=== PATIENT | male | born 1965 | race Caucasian/White ===

== ENCOUNTER 2023-12-22 14:40 | Outpatient (CLI) | payer MEDICAID, SELFPAY ==
--- NOTE | 2023-12-22 10:30 | DI.RAD_ITS ---
Exam(s) XR KNEE LT 3V AP,LAT,DAMARI EXAM: XR KNEE LT 3V AP,LAT,DAMARI CLINICAL HISTORY: BILAT KNEE PAIN. TECHNIQUE: 2D digital imaging was performed. Three views. COMPARISON: No exams were available for comparison FINDINGS: BONES: No acute fracture is present. No bony destructive lesion is seen. JOINTS: Moderate narrowing of the medial femoral tibial joint space with mild periarticular spurring. Mild varus angulation. Patellofemoral joint space is maintained and shows mild periarticular spurr ing. No joint effusion is seen. SOFT TISSUE: Vascular calcifications. IMPRESSION: Stable moderate degenerative changes of the medial femoral tibial joint. DATA REPOSITORY: RADIATION DOSE DELIVERED:
--- NOTE | 2023-12-22 10:30 | DI.RAD_ITS ---
Exam(s) XR KNEE RT 3V AP,LAT,DAMARI EXAM: XR KNEE RT 3V AP,LAT,DAMARI CLINICAL HISTORY: BILAT KNEE PAIN. TECHNIQUE: 2D digital imaging was performed. Three views. COMPARISON: CR XR KNEE COMPLETE MIN 4V BILAT-M2 from 04/16/2023 CR XR KNEE LT 3V AP,LAT,DAMARI from 12/22/2023 FINDINGS: BONES: No acute fracture is present. No bony destructive lesion is seen. JOINTS: There is moderate to severe narrowing of the medial femoral tibial joint space with periartic ular spurring and mild varus angulation. Compensatory widening of lateral femoral tibial joint space . Patellofemoral joint space is maintained. Mild periarticular spurring. No joint effusion is seen . SOFT TISSUE: Vascular calcifications. IMPRESSION: Moderate to severe degenerative changes medial femoral tibial joint. DATA REPOSITORY: RADIATION DOSE DELIVERED:
== END 2023-12-22 14:41 | disposition home or self-care (01) ==
LOC: DIORS 14:40
PROVIDERS: PCP Registered Nurse; Visit Provider Student in an Organized Health Care Education/Training Program
DX: M17.12 Unilateral primary osteoarthritis, left knee (principal); M17.11 Unilateral primary osteoarthritis, right knee
CPT/HCPCS: 73562

== ENCOUNTER 2024-04-04 02:24 | Outpatient (CLI) | payer OTHER, SELFPAY ==
[2024-04-04 14:33] LABS: HCT 38.2 % (40.0-50.0); HGB 13.2 g/dL (13.5-17.5); MCH 32.3 pg (27.0-33.0); MCHC 34.6 % (32.0-36.0); MCV 93 fL (80-95); Platelet Count 230 10^3/uL (130-400); RBC 4.09 10^6/uL (4.36-5.78); RDW 12.8 % (11.8-14.1); RDW-SD 43.9 fL; WBC 7.16 10^3/uL (4.4-10.8)
[2024-04-04 14:57] LABS: Anion Gap 7.9 mmol/L (3-11); BUN 19 mg/dL (7-18); CO2 27.1 mmol/L (21.0-32.0); CREATININE 1.3 mg/dL (0.70-1.30); Chloride 111 mmol/L (98-107); Estimated GFR 64.07 (mL/min/1.73m2); Glucose 95 mg/dL (74-106); Potassium 4.3 mmol/L (3.5-5.1); Sodium 146 mmol/L (136-145)
== END 2024-04-04 02:25 | disposition home or self-care (01) ==
LOC: LBO 02:24
PROVIDERS: PCP Registered Nurse; Visit Provider Student in an Organized Health Care Education/Training Program
DX: M17.12 Unilateral primary osteoarthritis, left knee (principal); M17.11 Unilateral primary osteoarthritis, right knee; Z01.818 Encounter for other preprocedural examination
CPT/HCPCS: 36415; 80048; 85027

== ENCOUNTER 2024-04-04 15:24 | Outpatient (CLI) | payer OTHER, SELFPAY ==
--- NOTE | 2024-04-04 15:15 | DI.RAD_ITS ---
Exam(s) XR KNEE LT 1V XR KNEE RT 1V XR STANDING ALIGNMENT EXAM: XR STANDING ALIGNMENT and XR knee 1 V bilaterally CLINICAL HISTORY: PRE OP BILAT TKAs. TECHNIQUE: 2D digital imaging was performed. Six images were obtained. COMPARISON: CR XR KNEE LT 3V AP,LAT,DAMARI from 12/22/2023 CR XR KNEE RT 3V AP,LAT,DAMARI from 12/22/2023 FINDINGS: BONES: The hips are well maintained. There are degenerative changes seen in the right knee character ized by joint space narrowing and osteophytes. The findings are most marked in the medial femoral ti bial joint. In the left knee, degenerative changes are seen in the medial femoral tibial patellofemo ral joints characterized by joint space narrowing and osteophytes. There is a small right joint effu josselin. The ankles are well maintained.There is no significant leg length discrepancy. SOFT TISSUE: Vascular calcifications are present. IMPRESSION: Moderately severe osteoarthritis of the knees bilaterally. DATA REPOSITORY: RADIATION DOSE DELIVERED:
== END 2024-04-04 15:25 | disposition home or self-care (01) ==
LOC: DIORS 15:24
PROVIDERS: PCP Registered Nurse; Referring Provider Registered Nurse; Visit Provider Physician Assistant
DX: M17.11 Unilateral primary osteoarthritis, right knee (principal); M17.12 Unilateral primary osteoarthritis, left knee
CPT/HCPCS: 73560; 77073

== ENCOUNTER 2024-04-12 17:33 | Observation (INO) | payer OTHER, SELFPAY ==
[2024-04-12] VITALS (10 sets, daily range): BP systolic 120–140; BP diastolic 77–93; PULSE 58–69; RESP 13–18; TEMP 36.1–36.5; O2SAT 98–100; BMI 27.9
[2024-04-12] MEDS: Acetaminophen 500 MG TAB 1000 MG PO ×2 (10:41→19:28)
[2024-04-12] MEDS: Gabapentin 300 MG CAP PO ×2 (10:41→19:28)
[2024-04-12] MEDS: Celecoxib 200 MG CAP 400 MG PO (10:41)
[2024-04-12] MEDS: Lactated Ringers 1,000 ML 80 ML IV ×2 (10:59→17:55)
--- NOTE | 2024-04-12 11:51 | W.ANESPRE ---
General Info Date of Service Date Performed: 04/12/24 Height: 5 ft 10 in Weight: 88.4 kg Body Mass Index (BMI): 27.9 Surgical Procedure: Operation Date: 04/12/24 12:35 Proposed Procedure Side Surgeon p Knee Total Arthroplasty Bilateral Bilateral Korey Ricketts MD Meds Allergies and Home Medications Allergies Allergy/AdvReac Type Severity Reaction Status Date / Time No Known Allergies Allergy Verified 04/12/24 10:26 Home Medication ?Medication ?Instructions ?Recorded Unknown [No Known Home Meds] 03/22/24 acetaminophen 500 mg tablet 1,000 mg (2 x 500 mg) PO Q8H PRN 04/12/24 pain #90 tabs aspirin 81 mg tablet,delayed 81 mg PO BID 30 days #60 tabs 04/12/24 release celecoxib 200 mg capsule (Celebrex) 200 mg PO BID PRN #60 caps 04/12/24 dexamethasone 4 mg tablet 4 mg PO DAILY #2 tabs 04/12/24 docusate sodium 100 mg capsule 100 mg PO BID #30 caps 04/12/24 (Colace) gabapentin 300 mg capsule 300 mg PO QHS #14 caps 04/12/24 oxycodone 5 mg tablet 5 mg PO Q4H PRN #18 tabs 04/12/24 pantoprazole 40 mg tablet,delayed 40 mg PO DAILY 14 days #14 tabs 04/12/24 release Current Visit Medications: Current Medications Generic Name Dose Route Start Last Admin Trade Name Freq PRN Reason Stop Dose Admin Acetaminophen 1,000 mg 04/12/24 06:00 04/12/24 10:41 Acetaminophen 500 Mg Tab PO 04/12/24 23:59 1,000 mg PREOP NAMRATA Administration Acetaminophen 1,000 mg 04/12/24 14:00 Acetaminophen 500 Mg Tab PO 05/12/24 13:59 TID NAMRATA Aspirin 81 mg 04/12/24 20:00 Aspirin E.C. 81 Mg Tabec PO 05/12/24 19:59 BID NAMRATA Celecoxib 400 mg 04/12/24 06:00 04/12/24 10:41 Celecoxib 200 Mg Cap PO 04/12/24 23:59 400 mg PREOP NAMRATA Administration Celecoxib 200 mg 04/12/24 20:00 Celecoxib 200 Mg Cap PO 05/12/24 19:59 BID NAMRATA Dexamethasone 4 mg 04/13/24 08:30 Dexamethasone 4 Mg Tab PO 04/14/24 08:31 DAILY NAMRATA Ephedrine Sulfate 0 mg 04/12/24 11:49 Ephedrine 25 Mg/5 Ml Syringe IVP 05/12/24 11:48 DIRECTED PRN Fentanyl 0 mcg 04/12/24 11:49 Fentanyl 100 Mcg/2 Ml Vial IVP 05/12/24 11:48 DIRECTED PRN Gabapentin 300 mg 04/12/24 06:00 04/12/24 10:41 Gabapentin 300 Mg Cap PO 04/12/24 23:59 300 mg PREOP NAMRATA Administration Gabapentin 300 mg 04/12/24 20:00 Gabapentin 300 Mg Cap PO 05/12/24 19:59 HS NAMRATA Hydromorphone HCl 0.5 mg 04/12/24 10:24 Hydromorphone 2 Mg/Ml Syr IVP 05/12/24 10:23 Q2H PRN PRN Hydromorphone HCl 0 mg 04/12/24 11:49 Hydromorphone 2 Mg/Ml Syr IVP 05/12/24 11:48 DIRECTED PRN Ringer's Solution 1,000 mls @ 80 mls/hr 04/12/24 06:00 04/12/24 10:59 IV 04/12/24 23:59 80 mls/hr INFUSION NAMRATA Administration Cefazolin Sodium/Dextrose 2 gm in 50 mls @ 100 mls/hr 04/12/24 06:00 Ancef Duplex IVPB 04/12/24 23:59 PREOP NAMRATA Tranexamic Acid/Sodium Chloride 1,000 mg in 100 mls @ 600 mls/hr 04/12/24 06:00 IVPB 04/12/24 23:59 PREOP NAMRATA Tranexamic Acid/Sodium Chloride 1,000 mg in 100 mls @ 600 mls/hr 04/12/24 06:00 IVPB 04/12/24 23:59 DIRECTED NAMRATA Cefazolin Sodium/Dextrose 1 gm in 50 mls @ 100 mls/hr 04/12/24 12:00 Ancef Duplex IVPB 04/13/24 04:29 Q8H NAMRATA IV Miscellaneous Supplies 1 each 04/12/24 06:00 Iv Access IV 04/12/24 23:59 DIRECTED NAMRATA Naloxone HCl 0 mg 04/12/24 11:49 Naloxone 0.4 Mg/Ml Vial IVP 05/12/24 11:48 PRN PRN Oxycodone HCl 0 mg 04/12/24 10:24 Oxycodone 5 Mg Tab PO 05/12/24 10:23 Q3H PRN PRN Pain Sodium Chloride 0 ml 04/12/24 06:00 Normal Saline Flush 10 Ml Syr IV 04/12/24 23:59 PRN PRN Sodium Chloride 0 ml 04/12/24 06:00 Normal Saline 10 Ml Vial IJ 04/12/24 23:59 DIRECTED PRN Sterile Water 0 ml 04/12/24 06:00 Water,Injection,Sterile 10 Ml Vial IJ 04/12/24 23:59 DIRECTED PRN PFSH Active Problems Active Problems: Problem Status Onset Code Arthritis of left knee Chronic M17.12 Arthritis of right knee Chronic M17.11 Pain, foot Acute M79.673 Right shoulder pain Acute M25.511 Hypertension Chronic I10 Onychomycosis Acute B35.1 Medical History Medical History Past history of chewing tobacco use continues on occasion quit 10/2022 Medial meniscus tear Bronchitis with bronchospasm Cellulitis of great toe, left Surgical History Surgical History Hx of LASIK bilateral - right eye repaired in Spring 2023 Status post arthroscopy of right shoulder S/P arthroscopy of knee (08/26/22) left Status post surgical removal of nail matrix of toe Tobacco Smoking/Tobacco Use Status: Never Alcohol Alcohol Intake: current Alcohol intake frequency: 0-2 drinks per day Alcohol type: beer Substance Use Substance use: Never Substance use type: does not use Details: Last chewed tobacco 04/11/24 Vital Signs and Lab Results Vital Signs Most Recent Vital Signs in EMR: Most Recent Vital Signs Temp Pulse Resp BP Pulse Ox 36.4 C L 59 L 16 125/82 100 04/12/24 10:32 04/12/24 10:32 04/12/24 10:32 04/12/24 10:32 04/12/24 10:32 Lab Results Blood Type / Crossmatch: No Data to Display Complete Blood Count: White Blood Count 7.16 10^3/uL (4.4-10.8) 04/04/24 14:15 Red Blood Count 4.09 10^6/uL (4.36-5.78) L 04/04/24 14:15 Hemoglobin 13.2 g/dL (13.5-17.5) L 04/04/24 14:15 Hematocrit 38.2 % (40.0-50.0) L 04/04/24 14:15 Platelet Count 230 10^3/uL (130-400) 04/04/24 14:15 Complete Metabolic Panel: Sodium 146 mmol/L (136-145) H 04/04/24 14:15 Potassium 4.3 mmol/L (3.5-5.1) 04/04/24 14:15 Chloride 111 mmol/L (98-107) H 04/04/24 14:15 Carbon Dioxide 27.1 mmol/L (21.0-32.0) 04/04/24 14:15 BUN 19 mg/dL (7-18) H 04/04/24 14:15 Creatinine 1.3 mg/dL (0.70-1.30) 04/04/24 14:15 Est GFR (CKD-EPI 2020) 64.07 (mL/min/1.73m2) 04/04/24 14:15 Calcium 9.0 mg/dL (8.5-10.1) 04/04/24 14:15 Glucose 95 mg/dL (74-106) 04/04/24 14:15 Liver Function Panel: No Data to Display Coagulation Panel: No Data to Display Cardiac Panel: No Data to Display Arterial Blood Gas: No Data to Display Venous Blood Gas: No Data to Display Pancreas Panel: No Data to Display Thyroid Panel: No Data to Display Infectious Disease: No Data to Display Blood Cultures: No Data to Display Toxicology Panel: No Data to Display Anesthesia Assessment and Plan Anesthesia History Personal History: No History of Anesthesia Complications Family History: No Family History of Anesthesia Complications Exercise Tolerance Exercise Tolerance: Metabolic Equivalents>4 Pertinent Negatives Pertinent Negatives: No Symptoms of GERD, No Major Cardiovascular Symptoms or Complaints and No Major Pulmonary Symptoms or Complaints Cardiac & Pulmonary Exam Cardiac Exam: Normal S1/S2 Heart Sounds Pulmonary Exam: Clear Bilateral Breath Sounds Implantable Cardiac Device Does patient have a Pacemaker or an ICD?: No Airway Exam Known Difficult Airway: No Mallampati Class: 1 Mouth Opening: Normal (> 3cm) Thyromental Distance: Greater than 3 cm Neck Range of Motion: Full ROM Neck Circumference: Normal Teeth Condition: Normal Dentition ASA Classification ASA Score: ASA 2 Emergency Case?: No NPO Status NPO Status: NPO Clears >2 hours, Solids >8 hours Anesthesia Plan Resuscitation Status: Full Code Anesthesia Technique: Spinal Anesthesia Airway Planned: Natural Airway Pain Management: Surgeon and patient request nerve block Monitors Used: Standard Monitors
[2024-04-12] MEDS: ceFAZolin 2 GM/50 ML BAG IVPB (13:56)
[2024-04-12] MEDS: TRANEXAMIC ACID/SOD. CHL. 1,000 MG/100 ML BAG 600 MG IVPB ×2 (14:05→15:17)
--- NOTE | 2024-04-12 15:14 | W.ANESNERVE ---
Nerve Block Single Injection Procedure Date and Time Date Performed: 04/12/24 Procedure Start: 12:36 Location Where Procedure Performed Procedure Location: Day Surgery Unit Reason Performed: Postoperative Analgesia Requesting Provider: Korey Ricketts Timeout Performed Timeout Performed: Yes Monitoring Used ECG, Blood Pressure, SpO2 and See EMR for corresponding vital signs Sterility Sterility: Hand Hygiene, Surgical Cap, Surgical Mask, Sterile Gloves and Chlorhexidine Sedation Given During Procedure Sedation Given (Indicate Dose Given): Versed IV Dose:: 2mg Patient Mental Status Patient Mental Status: Awake Nerve Block 1st Nerve Block: Laterality: Bilateral Block Type: Adductor Canal Ultrasound Image Saved?: Yes Needle / Catheter Used: 100mm SonoPlex II Local Anesthetic Bolus (Indicate Dose Given): Lidocaine used for local infiltration of skin, Injected in 3-5ml increments after negative blood aspiration, Half of Total block solution given into each side, Bupivacaine 0.25% Dose:: 20mL and Exparel Dose:: 20mL Additives (Indicate Dose Given): None Ultrasound: Sterile probe cover and gel used Nerve Stimulator: Supplement to Ultrasound use and No twitch or parasthesia noted < 0.5 mA Paresthesia: None Procedure Tolerated: No Complications and Patient tolerated well Procedure Outcome: Successful Performed By: Neda Paul
--- NOTE | 2024-04-12 17:12 | W.ANESPOSTOP ---
Postoperative Evaluation Date, Time and Location Date Performed: 04/12/24 Time Performed: 17:12 Patient Location: PACU Vital Signs Most Recent Imported Vital Signs: Most Recent Vital Signs Temp Pulse Resp BP Pulse Ox 36.2 C L 58 L 13 132/77 99 04/12/24 16:54 04/12/24 12:36 04/12/24 12:36 04/12/24 12:36 04/12/24 12:36 Pain Score Most Recent Pain Score: Most Recent Pain Score Pain Level 0 04/12/24 16:54 Assessment Mental Status: Awake (Alert & Oriented to Patient Baseline) Airway and Respiratory Function: Patent airway with normal (patient baseline) respiratory exam Cardiovascular Function: Hemodynamically Stable Hydration Status: Adequately Hydrated Nausea & Vomiting: No Nausea or Vomiting Pain: Pain is tolerable per patient Peripheral Nerve Block: Patient did not receive a nerve block
[2024-04-12] MEDS: fentaNYL 100 MCG/2 ML VIAL IVP (17:13)
--- NOTE | 2024-04-12 17:16 | W.PM.OP ---
Date of service: 04/12/24 Time of Service: 13:45 Operative Note Operative Note DATE OF PROCEDURE: 04/12/24 PRE-OP DIAGNOSIS: Bilateral Knee Arthritis POST-OP DIAGNOSIS: same PROCEDURE: Bilateral Total Knee Arthroplasty SURGEON: Korey Ricketts MANAGER OF PMO: Nayla Varghese ANESTHESIA TYPE: General LMA/ETT and Spinal Refer to Anesthesia Record ESTIMATED BLOOD LOSS: 200 PATHOLOGY: none sent COMPLICATIONS: None Patient was transported to: PACU Patient's condition: stable Implants: LEFT: 1. Depuy Attune Cementless Cruciate Retaining Femoral Component, Size 7 2. Depuy Attune Cementless Fixed Bearing Tibial Component, Size 7 3. Depuy Attune 7x6 CR/FB Poly 4. Depuy Attune Patellar Component, Size 35 RIGHT: 1. Depuy Attune Cementless Cruciate Retaining Femoral Component, Size 7 2. Depuy Attune Cementless Fixed Bearing Tibial Component, Size 7 3. Depuy Attune 7x6 CR/FB Poly 4. Depuy Attune Patellar Component, Size 38 Indications: I have seen Avila in clinic for symptoms of knee arthritis, confirmed with radiographic findings. He has exhausted nonoperative methods and was having significant limitations in daily function and desired better function and less pain. I discussed the technical details of a knee replacement. I explained the risks of the procedure to include, but not limited to, bleeding, infection, pain, stiffness, fracture, damage to nerves and vessels, damage to muscles and tendons, loosening, need for repeat procedure, blood clot and cardiopulmonary demise. Despite these risks, Avila elected to proceed. Findings: There was significant arthritis throughout both knees focused mostly in the medial compartment. Procedure Description: Avila was greeted in the preoperative holding area where the correct side was identified and marked. The consent was reviewed with the patient and signed. The history and physical was updated. All questions were answered. Preoperative medications were administered: Acetaminophen 1000mg, Celebrex 400mg, and Gabapentin 300mg. An adductor canal block was then administered by the anesthesia team in the [facility]. He was taken back to the operating room. A spinal anesthestic was then administered. There was little flow during the spinal and with concern for this setting up, a general anesthetic was then administered. The patient was then placed into the supine position on the operating room table. A nonsterile tourniquet was placed high onto the leg but only used for cementing. Posts were placed for positioning during the procedure. All bony prominences were well padded. Prophylactic antibiotics in the form of Cefazolin were administered. 1g of Tranxemic Acid was given intravenously within 30 minutes of incision. Both legs were then prepped with Chloraprep and draped in a standard fashion with impervious stockinette. A second prep with Chloraprep was performed prior to application of Iodine impregnated skin protection. A timeout to confirm correct identity, side and site, procedure, allergies, anesthesia, and medical concerns was performed. RIGHT KNEE: With the knee in some flexion, a midline incision was made overlying the knee. Full thickness skin flaps were raised once the extensor mechanism was encountered. These were raised medially and laterally. Any bleeding was controlled with electrocautery. Once the extensor mechanism was fully exposed, a medial parapatellar arthrotomy was performed in a flexed position. All bleeding from the arthrotomy and the geniculate arteries was coagulated. A medial subperiosteal peel was performed with electrocautery to the midcoronal plane. Due to the significant varus deformity the entire medial tibial plateau was exposed. The fat pad was removed while keeping the patellar tendon protected. The anterior distal femur synovium was removed for later visualization. The ACL and PCL were resected and the anterior horn of the lateral meniscus was transected. The knee was then flexed with the patella everted. Large osteophytes from the tibia were removed. Large osteophytes from the femur were removed. Using a step drill, and based on preoperative templating, the femoral canal was entered. This was done with a step drill without any difficulty. The intramedullary distal femoral cut guide was inserted, set to a 5 degree valgus cut and 9mm cut thickness. The distal femoral cut guide was then held in position and pinned. With the soft tissues protected, the distal cut was performed. This was passed over a few times to ensure a planar cut. I then turned attention to the tibia. The extramedullary guide was placed onto the leg. The distal aspect was slid medial to adjust for position of center of ankle and stay in line with shaft of the tibia. Approximately 3-5 degrees of posterior slope was kept in the proximal cutting guide. The center of the guide was aligned with the PCL. The stylus was used to assess cut thickness. The medial side, most involved side, was set for a 4mm cut. This was then held in position and pinned into place with 2 additional pins and a cross pin for stability. The medial and lateral collateral ligaments were protected and the cut was performed. With this completed, it was assessed and noted to be of appropriate dimensions. The guide was removed. A spacer block was inserted and the knee was brought into extension. The 6mm spacer block provided full extension, without hyperextension and with stability of both the medial and lateral collateral ligaments was assessed. The pins from the femur and the tibia were then removed. The distal femur was then sized. The anterior stylus was placed onto the lateral ridge of the anterior femur. This indicated a size 7 femur. The external rotation of the guide was adjusted to 3 degrees to match the epicondylar axis, perpendicular to [place]?s line. The 4-in-1 cutting guide was the placed. The posterior medial femur cut was evaluated and appeared of good thickness. The spacer block was inserted underneath the cutting guide and stability was confirmed in 90 degrees of flexion. An odette wing was used to confirm appropriate position of the anterior cut to avoid notching. This cutting guide was ensured to be flush on the cut surface and then pinned into place with headed pins. While protecting the soft tissues, quad tendon, and collateral ligaments, the anterior and posterior cuts were performed with a saw. The central two pins were removed and the posterior and anterior chamfers were cut next. The notch-cutting guide was placed. This was pinned to lateralize the femoral component as much as possible while keeping it flush on the cut surface. This was then pinned into position. A reciprocating saw was used to make the notch cut. A rasp smoothed the cut surfaces. The medial and lateral menisci were removed. A trial femoral component was then inserted, impacted down to the cut surfaces, and the lug holes were drilled. A provisional trial tibial component was placed and the knee was brought through range of motion. The patella was tracking without thumbs. A size 6mm polyethylene component provided the best range of motion and stability with less than 2mm gapping with medial and lateral stress and full extension without significant hyperextension. The tibial cut surface was fully exposed. The tibia was then sized as a 7. The tibia had been previously marked during trialing to correspond to the center of the tibial component to help with rotation. The trial was aligned to this rhoda, approximately rotated to the medial 1/3rd of the tibial tubercle. The trial was pinned into place. The tibia was prepared with a reamer and a keel punch and lug holes. The knee was then brought into extension and the patella was measured as 27mm. Using the patellar clamp and cut guide, this was resected to a flat surface with at least 13mm of thickness remaining. The size 38 patella fit the best. This was oriented and then clamped into position. The lugs were drilled. The trial components were removed. The final components were opened on the back table. The periosteal and capsular tissues, especially posteriorly, around the knee were then systematically injected with a periarticular cocktail consisting of 246mg of Ropivacaine, 0.5mg of Epinephrine, 0.08mg of Clonidine, and 30mg of Ketorolac, diluted to 100cc. On the back table, with the implants opened, the cement was mixed. One batch of high viscosity cement was prepared with vacuum assistance. After the cement was ready a small amount was placed on the cut surface of the patella and the patellar button was clamped into position and held. While the cement was hardening, the cementless knee components were placed. Starting with the tibial component, the tibia was subluxed anteriorly and the lug holes of the component were lined up. The tibia was then impacted with an impactor and mallet until the tibial component was in contact with the tibia. The final polyethylene component was inserted. Then, the femoral component was inserted. The lug holes were aligned and the component was impacted into position. The knee was irrigated with Surgiphor Betadine solution. This was allowed to sit in the knee for 3 minutes and then it was irrigated out with saline. After the cement had finally cured, approximately 15min, the clamp was removed from the patella and the knee was taken through range of motion. The patella was tracking with a no-thumbs technique. The capsule was then reapproximated with a No. 1 Vicryl at multiple locations. The capsule was finally closed with a No. 2 Stratafix, barbed suture. The second dosing of 1g TXA was started. Deep tissues were then reapproximated with 0 Vicryl and 2-0 Vicryl. The skin was closed with a running 3-0 Monocryl in a subcuticular fashion. LEFT KNEE: With the knee in some flexion, a midline incision was made overlying the knee. Full thickness skin flaps were raised once the extensor mechanism was encountered. These were raised medially and laterally. Any bleeding was controlled with electrocautery. Once the extensor mechanism was fully exposed, a medial parapatellar arthrotomy was performed in a flexed position. All bleeding from the arthrotomy and the geniculate arteries was coagulated. A medial subperiosteal peel was performed with electrocautery to the midcoronal plane. Due to the significant varus deformity the entire medial tibial plateau was exposed. The fat pad was removed while keeping the patellar tendon protected. The anterior distal femur synovium was removed for later visualization. The ACL and PCL were resected and the anterior horn of the lateral meniscus was transected. The knee was then flexed with the patella everted. Large osteophytes from the tibia were removed. Large osteophytes from the femur were removed. Using a step drill, and based on preoperative templating, the femoral canal was entered. This was done with a step drill without any difficulty. The intramedullary distal femoral cut guide was inserted, set to a 5 degree valgus cut and 9mm cut thickness. The distal femoral cut guide was then held in position and pinned. With the soft tissues protected, the distal cut was performed. This was passed over a few times to ensure a planar cut. I then turned attention to the tibia. The extramedullary guide was placed onto the leg. The distal aspect was slid medial to adjust for position of center of ankle and stay in line with shaft of the tibia. Approximately 3-5 degrees of posterior slope was kept in the proximal cutting guide. The center of the guide was aligned with the PCL. The stylus was used to assess cut thickness. The medial side, most involved side, was set for a 5mm cut, corresponding to 9mm laterally. This was then held in position and pinned into place with 2 additional pins and a cross pin for stability. The medial and lateral collateral ligaments were protected and the cut was performed. With this completed, it was assessed and noted to be of appropriate dimensions. The guide was removed. A spacer block was inserted and the knee was brought into extension. The 6mm spacer block provided full extension, without hyperextension and with stability of both the medial and lateral collateral ligaments was assessed. The pins from the femur and the tibia were then removed. The distal femur was then sized. The anterior stylus was placed onto the lateral ridge of the anterior femur. This indicated a size 7 femur. The external rotation of the guide was adjusted to 3 degrees to match the epicondylar axis, perpendicular to [place]?s line. The 4-in-1 cutting guide was the placed. The posterior medial femur cut was evaluated and appeared of good thickness. The spacer block was inserted underneath the cutting guide and stability was confirmed in 90 degrees of flexion. An odette wing was used to confirm appropriate position of the anterior cut to avoid notching. This cutting guide was ensured to be flush on the cut surface and then pinned into place with headed pins. While protecting the soft tissues, quad tendon, and collateral ligaments, the anterior and posterior cuts were performed with a saw. The central two pins were removed and the posterior and anterior chamfers were cut next. The notch-cutting guide was placed. This was pinned to lateralize the femoral component as much as possible while keeping it flush on the cut surface. This was then pinned into position. A reciprocating saw was used to make the notch cut. A rasp smoothed the cut surfaces. The medial and lateral menisci were removed. A trial femoral component was then inserted, impacted down to the cut surfaces, and the lug holes were drilled. A provisional trial tibial component was placed and the knee was brought through range of motion. There was noted to be excellent extension and flexion. There was no significant instability. The patella was tracking without thumbs. A size 6mm polyethylene component provided the best range of motion and stability with less than 2mm gapping with medial and lateral stress and full extension without significant hyperextension. The tibial cut surface was fully exposed. The tibia was then sized as a 7. The tibia had been previously marked during trialing to correspond to the center of the tibial component to help with rotation. The trial was aligned to this rhoda, approximately rotated to the medial 1/3rd of the tibial tubercle. The trial was pinned into place. The tibia was prepared with a reamer and a keel punch and lug holes. The knee was then brought into extension and the patella was measured as 25mm. Using the patellar clamp and cut guide, this was resected to a flat surface with at least 13mm of thickness remaining. The size 35 patella fit the best. This was oriented and then clamped into position. The lugs were drilled. The trial components were removed. The final components were opened on the back table. The periosteal and capsular tissues, especially posteriorly, around the knee were then systematically injected with a periarticular cocktail consisting of 246mg of Ropivacaine, 0.5mg of Epinephrine, 0.08mg of Clonidine, and 30mg of Ketorolac, diluted to 100cc. On the back table, with the implants opened, the cement was mixed. One batch of high viscosity cement was prepared with vacuum assistance. After the cement was ready a small amount was placed on the cut surface of the patella and the patellar button was clamped into position and held. While the cement was hardening, the cementless knee components were placed. Starting with the tibial component, the tibia was subluxed anteriorly and the lug holes of the component were lined up. The tibia was then impacted with an impactor and mallet until the tibial component was in contact with the tibia. The final polyethylene component was inserted. Then, the femoral component was inserted. The lug holes were aligned and the component was impacted into position. The knee was irrigated with Surgiphor Betadine solution. This was allowed to sit in the knee for 3 minutes and then it was irrigated out with saline. After the cement had finally cured, approximately 15min, the clamp was removed from the patella and the knee was taken through range of motion. The patella was tracking with a no-thumbs technique. The capsule was then reapproximated with a No. 1 Vicryl at multiple locations. The capsule was finally closed with a No. 2 Stratafix, barbed suture. Deep tissues were then reapproximated with 0 Vicryl and 2-0 Vicryl. The skin was closed with a running 3-0 Monocryl in a subcuticular fashion. Both incisions were then reinforced with skin glue. A Mepilex silver dressing was applied along with a [id number] ANDREW wrap to both knees. A CryoCuff was applied. Avila was transferred to the hospital bed without difficulty an suffering no apparent complication. Avila has a good prognosis. Physical therapy will start today and without restrictions, weight-bearing as tolerated. Aspirin 81mg BID will be used for DVT prophylaxis.
[2024-04-12] MEDS: ceFAZolin 1 GM/50 ML BAG IVPB (17:55)
[2024-04-12] MEDS: Celecoxib 200 MG CAP PO (19:28)
[2024-04-12] MEDS: Aspirin E.C. 81 MG TABEC PO (19:28)
[2024-04-12] MEDS: oxyCODONE 5 MG TAB PO (20:50)
[2024-04-13] MEDS: ceFAZolin 1 GM/50 ML BAG IVPB (01:25)
[2024-04-13 03:41] VITALS: BP 167/77; PULSE 69; RESP 17; TEMP 36.4; O2SAT 98
[2024-04-13] MEDS: oxyCODONE 5 MG TAB PO ×2 (03:49→07:35)
[2024-04-13] MEDS: Aspirin E.C. 81 MG TABEC PO (07:35)
[2024-04-13] MEDS: Dexamethasone 4 MG TAB PO (07:35)
[2024-04-13] MEDS: Celecoxib 200 MG CAP PO (07:35)
[2024-04-13] MEDS: Acetaminophen 500 MG TAB 1000 MG PO (07:35)
[2024-04-13 07:49] VITALS: BP 131/84; PULSE 66; RESP 20; TEMP 36.6; O2SAT 99
--- NOTE | 2024-04-13 08:31 | PT.INIE ---
PT Notes Visit Reasons: Bilateral knee DJD Physical Therapy Initial Evaluation Date: 04/13/24 Referring Doctor: Dr. Ricketts PT Orders: PT CONSULT: s/p bilat TKA Precautions: standard Patient Profile/Admitting Diagnosis: PT orders received for patient 1 day s/p bilat TKA. Social History/Home Situation: Avila resides in a single level home with his , who is present and supportive at time of consult. 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 Equipment Owned/DME: none Subjective: Avila states that he's been up and walking the halls with nursing this morning. He's been using his walker in the halls, but walking around his room without support. States that he gets really stiff if he sits still for too long, so has been keeping moving. Objective: General Observation: Sitting at EOB with knees flexed to 80* at initiation of session. No lines. Mental Status: A7Ox3. Pleasant and cooperative throughout. Pain: 4/10 ROM: Right Upper Extremity: WFL Left Upper Extremity: WFL Right Lower Extremity: Knee motion allows 0-100* flexion with heel slide. Left Lower Extremity: Knee motion allows 0-100* flexion with heel slide. Strength: Right Upper Extremity: WFL Left Upper Extremity: WFL Right Lower Extremity: Able to demonstrate SLR without lag. DF 3/5 or greater. Left Lower Extremity: Able to demonstrate SLR without lag. DF 3/5 or greater. Sensation: intact distally Bed Mobility/Transfers: Supine to sit : independent Sit to stand : independent Stand to sit : independent Bed to chair : independent Gait: Ambulates 300' with FWW, supervision only. Stairs: manages therapeutic stairs 6x4, 4x6 with bilat rails, supervision, step through pattern. Balance: Static Sitting: normal Dynamic Sitting: normal Static Standing: good Dynamic Standing: good Informed Consent/Education: Patient instructed in purpose of PT consult. Packet containing TKA exercise protocol has been given to patient. Education and training on initial set of exercises that can be done at home have been completed with patient. Treatment: Initial Evaluation (78773) Therapeutic Exercises (19050b6): Instructed in HEP consisting of anti-embolic exercises, SLR, heel slides and passive knee extension. Discussed post-op expectations and activity recommendations: advise patient to use FWW immediately post-op for pain control, weaning himself as tolerated. Keep walks frequent and short, progressing as pain allows. Encourage frequent rest and ice. Assessment: Patient presents with clinical signs and symptoms consistent with current/admitting diagnoses that have resulted to mobility limitations, gait instability, generalized weakness, and impairment of motor control as demonstrated by the following impairment level findings: 1. Decreased strength to bilat knee major muscle groups 2. Limitation of joint range of motion in bilat knees 3. Limitations in activity tolerance consistent with post-op status Impairments are contributing to the following functional limitations: 1. Inability to safely ambulate without assistive device 2. Increase completion time for mobility ADL performance 3. Increased fall risk Patient is assessed as low complexity based on the following: History: 59-year-old male with impairment level findings, functional limitations, and past medical history as indicated above Examination: Demonstrable impairment in strength, balance, and mobility level with underlying impairments and functional limitations as documented above Presentation: stable Decision Making: low Goals: N/A. PT evaluation only for functional mobility training using recommended AD and for HEP instruction. Plan of Care/Treatment Plan: N/A. PT evaluation only for functional mobility training using recommended AD and for HEP instruction. DISCHARGE RECOMMENDATIONS: Home with outpatient PT TREATMENT CODE/TIME: [id number] ([id number], [id number]) Thank you for the opportunity to participate in the care of this patient. Radha Parker, PT, DPT [facility] Please sign an return this page within 30 days if you agree with the above POC. Thank you! Physician Signature Date [facility]
--- NOTE | 2024-04-13 09:03 | DSE_ITS ---
Date of service: 04/13/24 Time of Service: 07:25 Discharge Plan Disposition Patient Disposition: Home Condition: Improving Discharge Details Reason For Visit: Bilateral knee DJD Admit Date/Time: 04/12/24 17:33 Admit Provider: Korey Ricketts Attending Provider: Korey Ricketts Primary Care Provider: Fior Crystal Hospital Course Hospital Course: Patient was admitted to the medical/surgical floor following the procedure. The surgery was tolerated well without any notable medical, surgical, or anesthetic complications. Mobilization began postoperatively. He was voiding spontaneously. Vitals were stable. Physical therapy worked with the patient and was cleared for discharge home. No acute medical issues. Pain was controlled on oral regimen. Home Meds and New Rx's Prescriptions: No Action No Known Home Meds celecoxib [Celebrex] 200 mg capsule 200 mg PO BID PRN (Reason: pain) Qty: 60 2RF Rx Instructions: Take one tablet twice daily for pain and inflammation Discharge Instructions Additional Instructions: Total Knee Discharge Instructions Activity: The most important activity is to walk and to work on gentle motion (both flexion and extension). You should try to take short walks a few times a day. It is important that when resting you work on keeping the knee straight. Avoid putting a pillow behind the knee as this will encourage flexion. Work on range of motion exercises as provided by Physical Therapy. - Start outpatient physical therapy within 2 weeks. - You should wear the SAMANTHA hose on both legs for 2 weeks. You may remove these at night. You may also use any compression sock in place of the SAMANTHA hose. - Utilize [employer] to review exercises, see videos on exercises and obtain basic information pertaining to your surgery and your recovery. Dressing: Remove the Paxton wrap by 2 days after your surgery and put on the SAMANTHA stocking given to you from the hospital. Keep the surgical dressing (underneath the PAXTON wrap) in place for at least one week. After the first week it may be removed and replaced with light gauze and tape or nothing. The wound and dressing may get wet after 3 days but avoid soaking the dressing or otherwise it will need to be changed. Many people prefer covering the dressing with cling wrap (saran wrap) to minimize it from getting soaked. If it gets wet, just pat dry. If it starts to peel off then it will need to be changed. Medications: - You should take Tylenol and anti-inflammatory Celebrex as your primary pain control medications. If the Celebrex is too expensive or not covered, please call the office for another alternative (Advil/Ibuprofen or Naproxen/Aleve) - You have been prescribed a stronger pain medication Oxycodone for breakthrough pain, take as needed as prescribed. - You have also been prescribed a stomach acid reduction agent Pantoprozole to help reduce stomach acid and reflux. - You have been prescribed Gabapentin to take at night for restlessness and nerve pain. - You will be taking Aspirin 81mg twice a day for DVT prevention unless instructed otherwise. - You have also been prescribed Decadron to take to control post-operative nausea and pain. You will start this tomorrow. - If you have constipation you should take Colace (which has been prescribed) or Miralax (which is available [id number]). It takes most people 3-4 days to have a bowel movement. Follow-up: 2 weeks If you have any acute concerns or questions, please do not hesitate to contact the office at [phone]. You may contact Dr. Ricketts with any questions after hours through the hospital at [phone] or on his cell phone at [phone]. Stand Alone Forms: Nursing Discharge Form Referrals: Korey Ricketts MD [ [facility] STAFF PHYSICIAN] - 04/25/24 1:45 pm Activity:: Activity as Tolerated Equipment/Supplies:: Walker Diet:: As Tolerated Discharge Orders Discharge Orders: Discharge Order (Routine); Ordered 04/13/24 Ordered By: Korey Ricketts Discharge Data Discharge Date/Time-TO BE ENTERED AT DEPARTURE: 04/13/24 09:48 DS: Summary Time Spent with Patient providing and/or coordinating discharge services: Less than 30 minutes Status at Discharge Functional status at discharge: uses cane/walker Overall status at discharge: patient is progressing back to baseline Mental Status: mental status grossly normal Speech and Movement: speech and movement normal Mood: congruent mood Affect: normal affect Quality:SDOH Health Related Social Needs: No Data to Display Exam Narrative Exam Narrative: Sitting up on the edge of the bed. No acute distress. Alert and orient x 3. Dressings are clean dry and intact both knees. Able to extend both knees and hold against resistance. Range of motion is approximate 5 to 95 degrees bilaterally. Psych Mental Status: mental status grossly normal Speech and Movement: speech and movement normal Mood: congruent mood Affect: normal affect DS: Data Vitals/I&O Vitals and I&O: Intake & Output 04/11/24 04/11/24 04/12/24 11:59 23:59 11:59 Weight 195 lb 0.017 oz PFSH All Active Problems History of bilateral knee replacement (Acute 04/12/24) Pain, foot (Acute) Right shoulder pain (Acute) Hypertension (Chronic) Onychomycosis (Acute) Medical History Past history of chewing tobacco use continues on occasion quit 10/2022 Medial meniscus tear Bronchitis with bronchospasm Cellulitis of great toe, left Surgical History Hx of LASIK bilateral - right eye repaired in Spring 2023 Status post arthroscopy of right shoulder S/P arthroscopy of knee (08/26/22) left Status post surgical removal of nail matrix of toe Social History Smoking/Tobacco Use Status: Never Smoking risk assessment performed?: Yes Alcohol Intake: current Alcohol Intake frequency: 0-2 drinks per day Alcohol type: beer Drug use: Never Substance use type: does not use Details: Last chewed tobacco 04/11/24 Household members: spouse Housing: house Number of Children: 2 current occupation: self employed Do you feel safe at home: Yes ([employer]) Do you feel safe in your relationship?: Yes Time Spent with Patient Time Spent with Patient: <45 minutes Time was spent: preparing to see the patient(eg.review tests), obtaining and/or reviewing separately otained hiistory, counseling the patient and care coordination
--- NOTE | 2024-04-13 12:52 | PDOC.CMPRO ---
Date of service: 04/13/24 Time of Service: 12:52 Care Management Progress Note Progress Note Text Progress Note Text: Avila was discharged home this morning, per PT he ambulated 300 ft with FWW, supervision only. Per PT evaluation; Avila resides in a single level home with his , who is present and supportive at time of consult. 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 Avila states that he's been up and walking the halls with nursing this morning. He's been using his walker in the halls, but walking around his room without support. States that he gets really stiff if he sits still for too long, so has been keeping moving. PT recommendation: Outpatient PT follow up, home with FWW provided through [facility]. Discharge Potential Discharge Needs: PT Evaluation (Outpatient PT follow up and FWW ) and Surgical F/U Appt Anticipated Barriers to Discharge: None Identified Patient/Family Education Needs: Review discharge instructions, discuss Ask Me Three Transportation: Private vehicle (with . ) Plan: Avila will follow up with his surgeon within two weeks, please see DC summary for specific discharge instructions including new medications and dressing changes. Avila transported via private vehicle with his -no additional services at time of discharge. SDOH(Care Management) Screening Will the Patient Participate in the Screening?: Yes Do you worry about having a steady place to live?: no Problems where you live: no known problems In the past 12 months, have you had to go without electric, gas, oil or water in your home?: no Have you or anyone in your house had to go without enough food to eat?: no Has lack of transportation kept you from medical appointments or from doing things needed for daily living?: no Has anyone in your support network made you feel unsafe for any reason?: no
== END 2024-04-13 09:48 | disposition home or self-care (01) ==
LOC: MS 04-13 08:11
PROVIDERS: Admitting Provider Student in an Organized Health Care Education/Training Program; PCP Registered Nurse; Visit Provider Student in an Organized Health Care Education/Training Program
PROC: 0SRC0JZ Replacement of Right Knee Joint with Synthetic Substitute, Open Approach (ICD-10-PCS; CPT 27447; principal; 2024-04-12 12:15)
DX: M17.0 Bilateral primary osteoarthritis of knee (principal); I10 Essential (primary) hypertension
CPT/HCPCS: 27447; 76942; 96365; 96366; 97110; 97161; C1776; C9290; G0378; J0665; J0690; J1100; J1171; J2001; J2250; J2401; J2405; J2704; J3010; J8540

== ENCOUNTER 2024-04-25 15:51 | Outpatient (CLI) | payer OTHER, SELFPAY ==
--- NOTE | 2024-04-25 13:30 | DI.RAD_ITS ---
Exam(s) XR KNEE LT 1V XR KNEE RT 1V XR STANDING ALIGNMENT EXAM: XR STANDING ALIGNMENT and XR knee bilateral 1 V CLINICAL HISTORY: post-op f/u bilateral TKA. TECHNIQUE: 2D digital imaging was performed. Six images were obtained. COMPARISON: CR XR STANDING ALIGNMENT from 04/04/2024 CR XR KNEE LT 1V from 04/04/2024 CR XR KNEE RT 1V from 04/04/2024 FINDINGS: BONES: There are mild degenerative changes seen in the hips bilaterally. The patient has bilateral t otal knee replacements. The orthopedic hardware are in good position. No suspicious lucencies are s een in or about the orthopedic hardware. The ankles are well maintained.There is no significant leg length discrepancy. SOFT TISSUE: Vascular calcifications are present. IMPRESSION: Bilateral total knee replacements. DATA REPOSITORY: RADIATION DOSE DELIVERED:
== END 2024-04-25 15:52 | disposition home or self-care (01) ==
LOC: DIORS 15:52
PROVIDERS: PCP Registered Nurse; Visit Provider Student in an Organized Health Care Education/Training Program
DX: Z96.653 Presence of artificial knee joint, bilateral (principal); Z47.1 Aftercare following joint replacement surgery
CPT/HCPCS: 73560; 77073